=== PATIENT | male | born 1955 | race Caucasian/White ===

== ENCOUNTER 2017-05-14 03:23 | Inpatient (IN) | payer BC, OTHER ==
[2017-05-14 05:32] VITALS: BMI 32.4
[2017-05-14] MEDS ORDERED: Vancomycin HCl 1 GM in Premix Bag 1 BAG IVPB SCH ×2 (06:00→13:30)
[2017-05-14] MEDS: Sodium Chloride 0.9% 1,000 ML IV SCH ×2 (06:04→21:43)
[2017-05-14] MEDS ORDERED: FLU VACC QS2017-18 36 mo. & older 0.5 ML SYRINGE IM ONE (09:00)
[2017-05-14] MEDS ORDERED: Dextrose 50% Abboject 50 ML SYRINGE SLOW IVP PRN (10:43)
[2017-05-14] MEDS ORDERED: Acetaminophen 325 MG TAB PO PRN (10:43)
[2017-05-14] MEDS ORDERED: Dextrose 5% in Water 1,000 ML IV PRN (10:43)
[2017-05-14] MEDS ORDERED: Acetaminophen 650 MG Suppository PR PRN (10:43)
[2017-05-14] MEDS ORDERED: Acetaminophen 500 MG TAB PO PRN (13:12)
[2017-05-14] MEDS ORDERED: Ibuprofen 600 MG TAB PO PRN (13:12)
[2017-05-14] MEDS ORDERED: traMADol HCl 50 MG TAB PO PRN ×2 (13:12)
[2017-05-14] MEDS ORDERED: ABX IVPB PRN ×2 (13:24→13:49)
[2017-05-14] MEDS ORDERED: VANCOMYCIN IVPB PRN ×2 (13:24→13:49)
[2017-05-14] MEDS ORDERED: Cephalexin 250 MG CAP PO SCH (13:44)
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
[2017-05-14] MEDS: HumaLOG 300 UNITS/3 ML VIAL SC PRN (16:42)
[2017-05-14] MEDS: Cephalexin 250 MG CAP PO SCH ×2 (17:32→23:24)
[2017-05-14] MEDS: metFORMIN 500 MG TAB PO SCH (19:31)
[2017-05-14] MEDS: Fish Oil 1,000 MG CAP PO SCH (19:31)
[2017-05-14] MEDS ORDERED: Insulin Detemir 100 UNITS/ML 30 UNITS in Pre-Filled Syringe 1 EACH SC SCH (21:00)
[2017-05-15 04:33] LABS: #Basophils 0.1 thou/uL (0.0-0.2); #Eosinphils 0.3 thou/uL (0.0-0.7); #Lymphocytes 2.1 thou/uL (1.20-3.40); #Monocytes 0.8 thou/uL (0.11-0.59); #Neutrophils 7.2 thou/uL (1.40-6.50); %Basophils 1.1 % (0.0-1.0); %Eosinophils 2.4 % (0.0-10.0); %Lymphocytes 20.3 % (21.0-51.0); %Monocytes 7.5 % (0.0-10.0); %Neutrophils 68.8 % (42.0-75.0); Hemoglobin 14.4 g/dL (14.0-18.0); Mean Corpuscular HGB CONC 34.4 g/dL (32.0-36.0); Mean Corpuscular Hemoglobin 29.4 pg (27.0-31.0); Mean Corpuscular Volume 85.6 fl (80.0-94.0); Mean Platelet Volume 7.7 fL (7.4-10.4); Platelet Count 241 thou/uL (130-400); Red Blood Cell (RBC) Count 4.91 mill/uL (4.70-6.10); White Blood Cell (WBC) Count 10.5 thou/uL (4.8-10.8)
[2017-05-15 04:46] LABS: Anion Gap 9 mmol/L (10-20); BUN (Urea Nitrogen) 16 mg/dL (8.4-25.7); Calc. Creatinine Clearance 102 mL/min (70-130); Carbon Dioxide 27 mmol/L (22-29); Chloride 104 mmol/L (98-107); Estimated GFR-MDRD 63; Glucose 252 mg/dL (70-105); Potassium 4.1 mmol/L (3.5-5.1); Sodium 136 mmol/L (136-145)
[2017-05-15] MEDS: Cephalexin 250 MG CAP PO SCH (05:38)
[2017-05-15] MEDS: HumaLOG 300 UNITS/3 ML VIAL SC PRN (05:40)
[2017-05-15] MEDS: Fish Oil 1,000 MG CAP PO SCH (07:59)
[2017-05-15] MEDS: metFORMIN 500 MG TAB PO SCH (07:59)
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
[2017-05-15 08:40] VITALS: BP 148/75; TEMP 98.3
[2017-05-15] MEDS ORDERED: Silver Sulfadiazine 1% Cream 50 GM TUBE TP SCH (09:00)
[2017-05-15] MEDS ORDERED: Enoxaparin Sodium 40 MG/0.4 ML SYRINGE SC SCH (09:00)
[2017-05-15] MEDS ORDERED: Polyethylene Glycol 3350 17 GM Packet PO SCH (09:00)
== END 2017-05-15 10:03 | disposition home or self-care (01) | DRG 935 ==
LOC: ERS 03:23 → T4-A 03:35
PROVIDERS: ADMIT Internal Medicine; ATTEND Internal Medicine
DX: T25.011A Burn of unspecified degree of right ankle, initial encounter (principal); T31.0 Burns involving less than 10% of body surface; G62.9 Polyneuropathy, unspecified; L03.115 Cellulitis of right lower limb; I69.354 Hemiplegia and hemiparesis following cerebral infarction affecting left non-dominant side; E11.9 Type 2 diabetes mellitus without complications; G40.909 Epilepsy, unspecified, not intractable, without status epilepticus; E66.9 Obesity, unspecified; Z68.32 Body mass index [BMI] 32.0-32.9, adult; X01.0XXA Exposure to flames in uncontrolled fire, not in building or structure, initial encounter
CPT/HCPCS: 36415; 36416; 80048; 85025; 90471; 90682; 96360; 99285; G0008; J1650; J1815; J3370; Q2036